=== PATIENT | female | born 1990 ===

== ENCOUNTER 2019-02-28 20:16 | Inpatient (IN) | payer MEDICAID ==
[2019-02-28 20:38] VITALS: BMI 34.2
[2019-02-28 21:55] LABS: BASO % 0.3 % (0.0-2.0); EOS % 0.3 % (0.0-4.0); HEMOGLOBIN 10.6 g/dL (12.0-16.0); LYMPH # 2.4 K/uL (1.0-4.3); LYMPH % 20.3 % (20.0-40.0); MEAN CELL VOLUME 80.5 fl (81.0-99.0); MEAN CORPUSCULAR HEMOGLOBIN 26.5 pg (27.0-31.0); MEAN CORPUSCULAR HGB CONC 32.9 g/dL (33.0-37.0); MEAN PLATELET VOLUME 8.8 fl (7.2-11.7); MONO # 0.7 K/uL (0.0-0.8); MONO % 5.7 % (0.0-10.0); NEUT # 8.8 K/uL (1.8-7.0); NEUT % 73.4 % (50.0-75.0); NRBC % 0.2 % (0.0-0.0); RBC 4.01 Mil/uL (3.80-5.20); RED CELL DISTRIBUTION WIDTH 14.6 % (11.5-14.5)
--- NOTE | 2019-02-28 21:57 | OBADHP ---
Datetime: 02/28/2019 20:46 Admit Comment, IP Provider: 28 YO with IUP at EGA 41 weeks, LMP 05/17/18 and past MARYJO 02/21/19, wh o presents to EDOB sent by her provider for schedule induction of labor. Patient denies VB, LOF, Uterine contractions, also denies ACEVES, dizziness, N/V, abdominal pain, back pain, dysuria, fever or any other acute medical complaint at present. Patient endorses +FM. ROS: all other systems reviewed and negative unless noted in HPI OBGYN: Patient reports normal course of this . PMH: None FMH: None Meds: PNV Surgical Hx: denies SOCHx: denies ETOH/ smoking/ or drug use ALLERG: NKA Labs: : HIV neg, HbsAg neg, 01/26 GBS negative, GC/CL neg, Rubella neg Type and screen: A+, ab neg PE: GEN: no acute distress Vitals: WNL Abd: Gravid, no tenderness to palpation Ext: No edema PelvIC Exam preformed with RN in room: cervix closed A/P: 28 YO with IUP at EGA 41 weeks, LMP 05/17/18 and past MARYJO 02/21/19, presenting to schedule labor induction for postdates >41weeks. -Admit to L_D -Maternal HR monitoring -FHR monitoring -Start induction of labor protocol: Cytotec 50 mg PO Q4h Case discussed with attending Dr Tammi Aktinson MD PGY1 Addendum by Dr. Cadena: I have evaluated the patient independently and I agree with the above Extremities - PN: Normal Abdomen - PN: Normal Back - PN: Normal Lungs - PN: Normal Heart - PN: Normal Neurologic - PN: Normal HEENT - PN: Normal General - PN: Normal FHR - Baseline A Provider: 150 Membranes, Provider: Intact Comments, ACOG Physical Exam: see admit note IP Hx Assessment: The History has been Reviewed and is Current Vital Signs Provider: Reviewed; Within Normal Limits IP Chief Complaint: Scheduled induction of labor NICHD Variability Prov Fetus A: Moderate 6-25bpm NICHD Decel Fetus A IP Provider: None Dilatation, Provider: 0 Station, Provider: -4 EGA AdmitDate IP: 41.0 IP Adm Impression: Term, intrauterine IP Admit Plan: Admit to unit; Initiate labor induction protocol Datetime: 02/28/2019 20:45 NICHD Accel Fetus A IP Provider: [id number]
[2019-03-01] MEDS ORDERED: Lactated Ringer's 1,000 ML IV SCH ×2 (00:15→10:45)
[2019-03-01] MEDS: Lactated Ringer's 1,000 ML IV SCH ×3 (01:30→16:30)
[2019-03-01] MEDS ORDERED: Nalbuphine HCL 10 mg/ml Ampule IVP PRN (04:11)
[2019-03-01] MEDS ORDERED: Oxytocin 30 UNIT in NS 500 ml 30 UNITS/500 ML BAG IV ONE ×2 (07:30→14:28)
[2019-03-01] MEDS ORDERED: Sodium Chloride 0.9% 1,000 ML IV SCH (09:00)
--- NOTE | 2019-03-01 09:02 | OBPN ---
Datetime: 03/01/2019 08:45 IP Progress Impression: Normal progression of labor; Reassuring heart rate IP Informed Consent Obtain: Vaginal Delivery IP Procedures: Intrauterine Pressure Catheter; Amnio Infusion IP Progress Plan: Augmentation; Anesthesia consult; Anticipate Vaginal Delivery Pool Provider: Positive Membranes, Provider: Ruptured Contraction Comments Provider: 2-4m FHR - Baseline A Provider: 135 Presentation-Admit: Vertex IP Progress Note Comment: OB Hospitalist on-call Sign out rec'd...some late decels last night noted . She was given Cytotec po. She had SROM and thick meconium noted. She feels CTX pain. Pitocin started 8am / currently at 2miu/h A: Latent phase of labor Thick meconium PLAN: Pitocin 2 miu/h; IUPC placed and will start amnioinfusion With Sharon translating patient's questions answewred Monitor labor progress NICHD Accel Fetus A IP Provider: 15X15 FHR Category Provider Fetus A: Category I NICHD Variability Prov Fetus A: Moderate 6-25bpm Dilatation, Provider: 4 Effacement, Provider: 90 Station, Provider: -2 NICHD Decel Fetus A IP Provider: None Datetime: 02/28/2019 20:46 Vital Signs Provider: Reviewed; Within Normal Limits
[2019-03-01] MEDS: Sodium Chloride 0.9% 1,000 ML IV SCH ×2 (09:47→22:47)
[2019-03-01] MEDS ORDERED: Sodium Chloride 0.9% 1,000 ML IV ONE (10:00)
[2019-03-01] MEDS ORDERED: Lidocaine Hydrochloride 0 ML INJ ONE (10:06)
[2019-03-01] MEDS ORDERED: Bupivacaine HCl 0.5% PF (30 ml) Inj ONE (11:03)
[2019-03-01] MEDS ORDERED: Fentanyl/Bupivacaine HCl 250 ML EPI ONE (11:03)
--- NOTE | 2019-03-01 12:32 | OBPN ---
Datetime: 03/01/2019 12:30 IP Progress Impression: Normal progression of labor; Reassuring heart rate IP Informed Consent Obtain: Vaginal Delivery IP Procedures: Amnio Infusion IP Progress Plan: Continue present management; Augmentation; Anticipate Vaginal Delivery Membranes, Provider: Ruptured Contraction Comments Provider: 2-2-5m FHR - Baseline A Provider: 130 Presentation-Admit: Vertex IP Progress Note Comment: She feels sam aftyer epidural SVE 6cm Active phase of labor PLAN: Pioticn at 2miu/h...increase until CTX q 2-3m Amnioinfusion runninng NICHD Accel Fetus A IP Provider: 15X15 FHR Category Provider Fetus A: Category I NICHD Variability Prov Fetus A: Moderate 6-25bpm Dilatation, Provider: 6 Effacement, Provider: 90 Station, Provider: -1 NICHD Decel Fetus A IP Provider: None
[2019-03-01] MEDS ORDERED: Sodium Chloride 0.9% 500 ML IV SCH (13:30)
[2019-03-01] MEDS ORDERED: OXYTOCIN/0.9 % NS 20 UNIT/1,000 ML BAG IV SCH (14:30)
--- NOTE | 2019-03-01 18:05 | OBPN ---
Datetime: 03/01/2019 17:00 IP Progress Impression: Reassuring heart rate IP Procedures: Amnio Infusion IP Progress Plan: Augmentation Membranes, Provider: Ruptured Contraction Comments Provider: 2-3m FHR - Baseline A Provider: 145 Presentation-Admit: Vertex IP Progress Note Comment: She feels fine with epidural She was cheked at 15:00pm - noted to be 6-7cm ...Pitocin at 6miu/h and amnioinfusion running at 125cc/h SVE no change...will re-examine in 1h NICHD Accel Fetus A IP Provider: 10X10 FHR Category Provider Fetus A: Category I NICHD Variability Prov Fetus A: Moderate 6-25bpm Dilatation, Provider: 6-7 Effacement, Provider: 100 Station, Provider: -1 NICHD Decel Fetus A IP Provider: None
--- NOTE | 2019-03-01 18:12 | OBPN ---
Datetime: 03/01/2019 18:05 IP Progress Impression: Normal progression of labor; Reassuring heart rate IP Procedures: Amnio Infusion IP Progress Plan: Augmentation; Anticipate Vaginal Delivery Membranes, Provider: Ruptured Contraction Comments Provider: 2-3m FHR - Baseline A Provider: 140 Presentation-Admit: Vertex IP Progress Note Comment: She feels some pressure SVE 9cm - progressing well...montior labor progress/amnioinfusion continuing/Pitocin at 6miu/h NICHD Accel Fetus A IP Provider: 15X15 FHR Category Provider Fetus A: Category I NICHD Variability Prov Fetus A: Moderate 6-25bpm Dilatation, Provider: 9 Effacement, Provider: 100 Station, Provider: 0 NICHD Decel Fetus A IP Provider: None
[2019-03-01] MEDS ORDERED: Lidocaine 1% Inj (20ml) ONE (21:15)
[2019-03-01] MEDS ORDERED: Benzocaine/Menthol SPRAY TOP PRN (22:49)
[2019-03-01] MEDS ORDERED: Oxycodone/Acetaminophen 5/325 mg Tab PO PRN ×2 (22:49)
[2019-03-02] MEDS ORDERED: OXYTOCIN/0.9 % NS 20 UNIT/1,000 ML BAG IV SCH ×2 (01:40→06:45)
[2019-03-02] MEDS ORDERED: Benzocaine/Menthol SPRAY TOP PRN (01:40)
[2019-03-02] MEDS ORDERED: Oxycodone/Acetaminophen 5/325 mg Tab PO PRN ×2 (01:40)
--- NOTE | 2019-03-02 06:42 | OBDS ---
DELIVERY PERSONNEL Delivery Doctor: Merrill Malhotra DO Scrub Nurse: Sharon KITCHEN Trader: Steph Wiggins RN Anesthesiologist: Dr. Mccracken MATERNAL INFORMATION Delivery Anesthesia: Local; Epidural Medications in Delivery: 30 units of pitocin in 500 ml of NS Placenta Cultured: No Maternal Complications: None Provider Comments: Over intact perineum, of live . One loose nuchal cord noted and reduc ed. Infant was crying spontaneously and placed on mother's chest for skin to skin. Peds present. Remington sierra delivered intact spontaneously. She remeained stable Fluid before delivery 500cc; after 600cc - total EBL 100cc LABOR SUMMARY EDC: 02/21/2019 00:00 No. Babies in Womb: 1 Attempted: No Labor Anesthesia: Epidural LABOR INFORMATION Reason for Induction: Postterm Onset of Labor: 03/01/2019 03:15 Complete Dilatation: 03/01/2019 20:51 Cervical Ripening Agents: Cytotec @ (Annotations: 50 mcg ) Oxytocin: Induction Group B Beta Strep: Negative Steroids Given: None Reason Steroids Not Administered: Not Applicable MEMBRANES Membranes Rupture Method: Spontaneous Rupture of Membranes: 03/01/2019 03:15 Length of Rupture (hrs): 18.62 Amniotic Fluid Color: Heavy Meconium Amniotic Fluid Amount: Large Amniotic Fluid Odor: Normal STAGES OF LABOR Stage 1 hrs: 17 Stage 1 min: 36 Stage 2 hrs: 1 Stage 2 min: 1 Stage 3 hrs: 0 Stage 3 min: 16 Total Time in Labor hrs: 18 Total Time in Labor min: 53 VAGINAL DELIVERY Episiotomy: None Laceration Extension: Second Degree Laceration Type: Perineal Laceration Repair: Yes Laceration Repair Note: 1% Lidoaine was infiltreated (5cc). 2nd degree laceratoin was repaired with 2.0 Vicryl Rapide suture. Initial Vag Sponge Count: 5 Final Vag Sponge Count: 5 Initial Vag Sharps Count: 3 Final Vag Sharps Count: 3 Sponge Count Correct: Yes Sharps Count Correct: Yes Count Comment: 5 lap pads one syringe two suture needles BABY A INFORMATION Infant Delivery Date/Time: 03/01/2019 21:52 Method of Delivery: Vaginal Method of Delivery: Vaginal Born in Route : No : N/A Forceps: N/A Vacuum Extraction: N/A Shoulder Dystocia : No SHOULDER DYSTOCIA BABY A Delivery Date/Time: 03/01/2019 21:52 PRESENTATION/POSITION BABY A Presentation: Cephalic Presentation: Cephalic Presentation: Cephalic Presentation: Cephalic Presentation: Cephalic Presentation: Cephalic Cephalic Presentation: Vertex Breech Presentation: N/A PLACENTA INFORMATION BABY A Placenta Delivery Time : 03/01/2019 22:08 Placenta Method of Delivery: Spontaneous Placenta Method of Delivery: Spontaneous Placenta Status: Delivered SCORES BABY A Heart Rate 1 min: >100 bpm Resp Effort 1 min: Good Cry Reflex Irritability 1 min: Cough or Sneeze or Pulls Away Muscle Tone 1 min: Active Motion Color 1 min: Body [place], Extremities Blue Resuscitation Effort 1 min: Tactile Stimulation SCORE 1 MIN: 9 Heart Rate 5 min: >100 bpm Resp Effort 5 min: Good Cry Reflex Irritability 5 min: Cough or Sneeze or Pulls Away Muscle Tone 5 min: Active Motion Color 5 min: Body [place], Extremities Blue Resuscitation Effort 5 min: N/A SCORE 5 MIN: 9 INFANT INFORMATION BABY A Gestational Age at Delivery: 41.1 Gestational Status: Post-term Outcome : Liveborn Infant Condition : Stable Sex: Female Infant Sex: Female IDENTIFICATION/MEDS BABY A ID Band Number: [id number] ID Band Location: Left Leg; Left Arm WEIGHT/LENGTH BABY A Infant Birthweight (gms): 4035 Weight (lb): 8 Infant Weight (oz): 14 CORD INFORMATION BABY A No. Cord Vessels: 3 Nuchal Cord : Around Neck x1, Loose Nuchal Cord Other: N/A True Knot: N/A Infant Cord pH Baby Arterial: N/A Cord pH Baby Venous: N/A Cord Blood Taken: Yes Banking/Donate Info: N/A Suction: Mouth; Nose ASSESSMENT BABY A Complications: Multiple Variable Decels; Meconium Physical Findings at Delivery: Caput Succedaneum Infant Respirations: Appears Normal Railroad Shop Inspector/ALS Called : No Infant Care By: Alan Bell EAdamoRN Transferred To: Remains with Mother
--- NOTE | 2019-03-02 06:44 | OBDS ---
DELIVERY PERSONNEL Delivery Doctor: Merrill Malhotra DO Scrub Nurse: Sharon KITCHEN Explosive Ordnance Disposal Manager: Steph Wiggins RN Anesthesiologist: Dr. Mccracken MATERNAL INFORMATION Delivery Anesthesia: Local; Epidural Medications in Delivery: 30 units of pitocin in 500 ml of NS Placenta Cultured: No Maternal Complications: None Provider Comments: Over intact perineum, of live . One loose nuchal cord noted and reduc ed. Infant was crying spontaneously and placed on mother's chest for skin to skin. Peds present. Remington sierra delivered intact spontaneously. She remeained stable Fluid before delivery 500cc; after 600cc - total EBL 100cc LABOR SUMMARY EDC: 02/21/2019 00:00 No. Babies in Womb: 1 Attempted: No Labor Anesthesia: Epidural LABOR INFORMATION Reason for Induction: Postterm Onset of Labor: 03/01/2019 03:15 Complete Dilatation: 03/01/2019 20:51 Cervical Ripening Agents: Cytotec @ (Annotations: 50 mcg ) Oxytocin: Induction Group B Beta Strep: Negative Steroids Given: None Reason Steroids Not Administered: Not Applicable MEMBRANES Membranes Rupture Method: Spontaneous Rupture of Membranes: 03/01/2019 03:15 Length of Rupture (hrs): 18.62 Amniotic Fluid Color: Heavy Meconium Amniotic Fluid Amount: Large Amniotic Fluid Odor: Normal STAGES OF LABOR Stage 1 hrs: 17 Stage 1 min: 36 Stage 2 hrs: 1 Stage 2 min: 1 Stage 3 hrs: 0 Stage 3 min: 16 Total Time in Labor hrs: 18 Total Time in Labor min: 53 VAGINAL DELIVERY Episiotomy: None Laceration Extension: Second Degree Laceration Type: Perineal Laceration Repair: Yes Laceration Repair Note: 1% Lidoaine was infiltreated (5cc). 2nd degree laceratoin was repaired with 2.0 Vicryl Rapide suture. Initial Vag Sponge Count: 5 Final Vag Sponge Count: 5 Initial Vag Sharps Count: 3 Final Vag Sharps Count: 3 Sponge Count Correct: Yes Sharps Count Correct: Yes Count Comment: 5 lap pads one syringe two suture needles BABY A INFORMATION Infant Delivery Date/Time: 03/01/2019 21:52 Method of Delivery: Vaginal Born in Route : No : N/A Forceps: N/A Vacuum Extraction: N/A Shoulder Dystocia : No SHOULDER DYSTOCIA BABY A Infant Delivery Date/Time: 03/01/2019 21:52 PRESENTATION/POSITION BABY A Presentation: Cephalic Cephalic Presentation: Vertex Breech Presentation: N/A PLACENTA INFORMATION BABY A Placenta Delivery Time : 03/01/2019 22:08 Placenta Method of Delivery: Spontaneous Placenta Status: Delivered SCORES BABY A Heart Rate 1 min: >100 bpm Resp Effort 1 min: Good Cry Reflex Irritability 1 min: Cough or Sneeze or Pulls Away Muscle Tone 1 min: Active Motion Color 1 min: Body [place], Extremities Blue Resuscitation Effort 1 min: Tactile Stimulation SCORE 1 MIN: 9 Heart Rate 5 min: >100 bpm Resp Effort 5 min: Good Cry Reflex Irritability 5 min: Cough or Sneeze or Pulls Away Muscle Tone 5 min: Active Motion Color 5 min: Body [place], Extremities Blue Resuscitation Effort 5 min: N/A SCORE 5 MIN: 9 INFANT INFORMATION BABY A Gestational Age at Delivery: 41.1 Gestational Status: Post-term Outcome : Liveborn Infant Condition : Stable Infant Sex: Female IDENTIFICATION/MEDS BABY A ID Band Number: [id number] ID Band Location: Left Leg; Left Arm WEIGHT/LENGTH BABY A Birthweight (gms): 4035 Weight (lb): 8 Weight (oz): 14 CORD INFORMATION BABY A No. Cord Vessels: 3 Nuchal Cord : Around Neck x1, Loose Nuchal Cord Other: N/A True Knot: N/A Cord pH Baby Arterial: N/A Cord pH Baby Venous: N/A Cord Blood Taken: Yes Banking/Donate Info: N/A Suction: Mouth; Nose ASSESSMENT BABY A Complications: Multiple Variable Decels; Meconium Physical Findings at Delivery: Caput Succedaneum Respirations: Appears Normal Seals Engraver/ALS Called : No Care By: Alan Bell EAdamoRN Transferred To: Remains with Mother
[2019-03-02 07:19] LABS: BASO % 0.2 % (0.0-2.0); HEMOGLOBIN 9.2 g/dL (12.0-16.0); LYMPH # 2.2 K/uL (1.0-4.3); LYMPH % 8.2 % (20.0-40.0); MEAN CELL VOLUME 82.8 fl (81.0-99.0); MEAN CORPUSCULAR HEMOGLOBIN 26.6 pg (27.0-31.0); MEAN CORPUSCULAR HGB CONC 32.1 g/dL (33.0-37.0); MEAN PLATELET VOLUME 9.3 fl (7.2-11.7); MONO # 1.5 K/uL (0.0-0.8); MONO % 5.5 % (0.0-10.0); NEUT # 23.3 K/uL (1.8-7.0); NEUT % 86.1 % (50.0-75.0); PLATELET COUNT 227 K/uL (130-400); RBC 3.47 Mil/uL (3.80-5.20); RED CELL DISTRIBUTION WIDTH 15.2 % (11.5-14.5); WHITE BLOOD COUNT 27.1 K/uL (4.8-10.8)
[2019-03-02] MEDS: Multivitamin With Minerals Tab PO SCH (08:06)
[2019-03-02] MEDS ORDERED: Multivitamin With Minerals Tab PO SCH (09:00)
[2019-03-02 09:16] LABS: BANDS 2 % (0-2); LYMPHOCYTE 7 % (20-50); MONOCYTE 1 % (0-10); NEUTROPHIL 90 % (42-75); TOTAL CELLS COUNTED 100
[2019-03-02 09:17] LABS: ANISOCYTOSIS SLIGHT; HYPOCHROMIC SLIGHT; PLATELET ESTIMATE NORMAL (NORMAL); TOXIC GRANULATION PRESENT
--- NOTE | 2019-03-02 09:28 | OBPPN ---
Datetime: 03/02/2019 06:30 PP Pain Prov: Within normal limits PP Nausea Prov: Denies PP Flatus Prov: Yes PP BM Prov: No PP Heart Prov: Normal PP Lungs Prov: Normal PP Comments Phys Exam Prov: see progress note PP Impression Prov: Normal progression PP Plan Prov: Continue present management PP Progress Note Prov: S: 28 YO s/p VD after induction of labor on 03/01/19, today PPD1, Patien t seen and examined at bedside. Pain control with medication. Patient ambulating with no difficulty. Tolerating regular diet without N/V. Lochia is same as menses in volume. Patient denies ACEVES, blurry vi sage, CP, palpitations, SOB, chills dysuria or other complaint at this time. appropriat tiffany. O: VS WNL GEN: NAD HEENT: NAD RESP: CTA b/l CV: RRR, S1 S2 normal, no murmurs ABD: Soft, uterus firm at umbilical level. Mild tender to touch, BS +. EXT: LE no edema, Ladonna's neg A/P 28 YO s/p VD after induction of labor on 03/01/19, today PPD1. Patient is afebrile, hemodynam ically stable. normal PP progression. Plan -OOB and Ambulation encouraged -Regular diet - encouraged -PNV 1 tab QD -Pain management -Continue present management -DC planning today Case discussed with attending Jason Atkinson MD PGY1 The patient was seen with the resident I agree with the note Vital Signs Provider PP: Reviewed; Within Normal Limits
[2019-03-03] MEDS ORDERED: Influenza Vaccine 60 mcg/0.5 mL SYR (4YR UP) IM ONE (10:00)
[2019-03-03] MEDS ORDERED: Measles, Mumps, and Rubella 0.5 ML VIAL SC ONE (10:00)
[2019-03-03] MEDS: Multivitamin With Minerals Tab PO SCH (10:40)
[2019-03-03 20:05] VITALS: BP 112/70; PULSE 88; RESP 19; TEMP 98.3; O2SAT 100
== END 2019-03-03 13:30 | disposition home or self-care (01) | DRG 560 ==
LOC: H.L&D 20:49 → H.OB/GYN 03-02 01:25
PROVIDERS: ADMIT Obstetrics & Gynecology; ATTEND Obstetrics & Gynecology
PROC: 4A1HXCZ Monitoring of Products of Conception, Cardiac Rate, External Approach (ICD-10-PCS; 2019-02-28)
PROC: 10E0XZZ Delivery of Products of Conception, External Approach (ICD-10-PCS; principal; 2019-03-01)
PROC: 0KQM0ZZ Repair Perineum Muscle, Open Approach (ICD-10-PCS; 2019-03-01)
DX: O48.0 Post-term pregnancy (principal); O77.0 Labor and delivery complicated by meconium in amniotic fluid; Z37.0 Single live birth; O76 Abnormality in fetal heart rate and rhythm complicating labor and delivery; Z3A.41 41 weeks gestation of pregnancy; O69.81X0 Labor and delivery complicated by cord around neck, without compression, not applicable or unspecified; O70.1 Second degree perineal laceration during delivery